=== PATIENT | male | born 1995 | race Caucasian/White ===

== ENCOUNTER 2016-07-30 01:00 | Emergency (ER) | payer BC, MEDICAID, OTHER ==
[~2016-07-30] VITALS: Ht 175.3 cm; Wt 62.0 kg
[~2016-07-30 01:00] MED LIST: VIST50CA PO; Z.0.NO CURRENT MEDS
[2016-07-30 01:27] VITALS: BP 136/90; PULSE 77; RESP 20; TEMP 98
[2016-07-30 01:34] LABS: AUTOMATED NEUTROPHIL # 5.2 TH/MM3 (1.8-7.7); BASOPHIL % 0.4 % (0.0-2.0); EOSINOPHIL # 0.1 TH/MM3 (0-0.4); EOSINOPHIL % 1.1 % (0.0-4.0); HEMATOCRIT 42.2 % (39.0-51.0); HEMO FLAGS DIFF FINAL; LYMPH % 34.3 % (9.0-44.0); LYMPHOCYTE # 3.1 TH/MM3 (1.0-4.8); MEAN CELL VOLUME 84.8 FL (80.0-100.0); MEAN CORPUSCULAR HEMOGLOBIN 29.1 PG (27.0-34.0); MEAN CORPUSCULAR HGB CONC 34.3 % (32.0-36.0); MONO % 6.9 % (0.0-8.0); NEUT % 57.3 % (16.0-70.0); PLATELET COUNT 259 TH/MM3 (150-450); RED BLOOD COUNT 4.97 MIL/MM3 (4.50-5.90); RED CELL DISTRIBUTION WIDTH 13.4 % (11.6-17.2); WHITE BLOOD COUNT 9.1 TH/MM3 (4.0-11.0)
[2016-07-30 01:36] VITALS: BP 136/90; PULSE 77; RESP 20; TEMP 98
[2016-07-30 02:02] LABS: ALT (GPT) 16 U/L (9-52); ANION GAP 7 MEQ/L (5-15); AST (GOT) 11 U/L (15-39); BICARBONATE 29.6 MEQ/L (21.0-32.0); BLOOD UREA NITROGEN 12 MG/DL (7-18); CHLORIDE 104 MEQ/L (98-107); GLOMERULAR FILTRATION RATE 96 ML/MIN (>89); POTASSIUM 3.6 MEQ/L (3.5-5.1); SODIUM (NA) 141 MEQ/L (136-145)
[2016-07-30 02:04] LABS: ALKALINE PHOSPHATASE 71 U/L (45-117); TOTAL BILIRUBIN ADULT 0.9 MG/DL (0.2-1.0)
[2016-07-30 02:07] LABS: ACETAMINOPHEN LESS THAN 2.0 MCG/ML (10.0-30.0)
[2016-07-30 02:14] LABS: AMPHETAMINE, URINE NEG (NEG); BARBITURATES, URINE NEG (NEG); COCAINE, URINE NEG (NEG)
--- NOTE | 2016-07-30 03:45 | PD ---
HPI Chief Complaint: Psychiatric Symptoms Time Seen by Provider: 03:41 Travel History International Travel<30 days: No Contact w/Intl Traveler<30days: No Traveled to known affect area: No History of Present Illness HPI 21-year-old white male presents to emergency department under Dc act by PD. The patient states that he had made suicide suggestive statements to his girlfriend in [place]. He states that she lives in [place] and goes to school at [employer]. He is currently enrolled at [employer] and is in a process of finishing up the semester and transferring to [employer] next semester. He states that his girlfriend and he are not getting along as well as he had hoped. He had hoped to upset her the way she upsets him by making these statements. He states that he truly has no intention of hurting himself or hurting anyone. He denies any toxic ingestions. He denies any drugs. He denies any back. He drinks occasionally. PFSH Past Medical History Medical History: Denies Significant Hx Diminished Hearing: No Immunizations Current: Yes Tetanus Vaccination: < 5 Years Influenza Vaccination: No Past Surgical History Surgical History: No Previous Surgery Social History Alcohol Use: Yes Tobacco Use: No Substance Use: No Allergies-Medications (Allergen,Severity, Reaction): Coded Allergies: No Known Allergies (Unverified , 07/30/16) Reported Meds & Prescriptions Reported Meds & Active Scripts Active No Active Prescriptions or Reported Medications Review of Systems Except as stated in HPI: all other systems reviewed are Neg Psychiatric: Positive: Mood Disorder, No: Anxiety, Depression, Suicidal Ideations, Disorder of Thought, Substance Abuse, Homicidal Ideation Physical Exam Narrative GENERAL: Well-nourished, well-developed patient. SKIN: Warm and dry. HEAD: Normocephalic and atraumatic. EYES: No scleral icterus. No injection or drainage. ENT: No nasal drainage noted. Mucous membranes pink. Airway patent. NECK: Supple, trachea midline. Moves head freely without obvious discomfort. CARDIOVASCULAR: Regular rate and rhythm without murmurs, gallops, or rubs. RESPIRATORY: Breath sounds equal bilaterally. No accessory muscle use. GASTROINTESTINAL: Abdomen soft, non-tender, nondistended. EXTREMITIES: No cyanosis or edema. BACK: Nontender without obvious deformity. No CVA tenderness. NEURO: Patient is alert and oriented. no sensorimotor deficits. Nonfocal. Normal speech. PSYCH: No delusions. No auditory or visual hallucinations. Data Data Last Documented VS Vital Signs Date Time Temp Pulse Resp B/P Pulse Ox O2 Delivery O2 Flow Rate FiO2 07/30/16 01:36 98.0 77 20 136/90 Orders Complete Blood Count With Diff (07/30/16 01:11) Comprehensive Metabolic Panel (07/30/16 01:11) Psych Screen (07/30/16 01:11) Drug Screen, Random Urine (07/30/16 01:11) Alcohol (Ethanol) (07/30/16 01:11) Salicylates (Aspirin) (07/30/16 01:11) Tylenol (Acetaminophen) (07/30/16 01:11) Labs Laboratory Tests Test 07/30/16 01:00 White Blood Count 9.1 TH/MM3 Red Blood Count 4.97 MIL/MM3 Hemoglobin 14.5 GM/DL Hematocrit 42.2 % Mean Corpuscular Volume 84.8 FL Mean Corpuscular Hemoglobin 29.1 PG Mean Corpuscular Hemoglobin 34.3 % Concent Red Cell Distribution Width 13.4 % Platelet Count 259 TH/MM3 Mean Platelet Volume 8.2 FL Neutrophils (%) (Auto) 57.3 % Lymphocytes (%) (Auto) 34.3 % Monocytes (%) (Auto) 6.9 % Eosinophils (%) (Auto) 1.1 % Basophils (%) (Auto) 0.4 % Neutrophils # (Auto) 5.2 TH/MM3 Lymphocytes # (Auto) 3.1 TH/MM3 Monocytes # (Auto) 0.6 TH/MM3 Eosinophils # (Auto) 0.1 TH/MM3 Basophils # (Auto) 0.0 TH/MM3 CBC Comment DIFF FINAL Differential Comment Sodium Level 141 MEQ/L Potassium Level 3.6 MEQ/L Chloride Level 104 MEQ/L Carbon Dioxide Level 29.6 MEQ/L Anion Gap 7 MEQ/L Blood Urea Nitrogen 12 MG/DL Creatinine 0.99 MG/DL Estimat Glomerular Filtration 96 ML/MIN Rate Random Glucose 98 MG/DL Calcium Level 9.4 MG/DL Total Bilirubin 0.9 MG/DL Aspartate Amino Transf 11 U/L (AST/SGOT) Alanine Aminotransferase 16 U/L (ALT/SGPT) Alkaline Phosphatase 71 U/L Total Protein 8.2 GM/DL Albumin 4.5 GM/DL Salicylates Level LESS THAN 1.7 MG/DL Urine Opiates Screen NEG Acetaminophen Level LESS THAN 2.0 MCG/ML Urine Barbiturates Screen NEG Urine Amphetamines Screen NEG Urine Benzodiazepines Screen NEG Urine Cocaine Screen NEG Urine Cannabinoids Screen NEG Ethyl Alcohol Level LESS THAN 3 MG/DL MDM Medical Decision Making Medical Screen Exam Complete: Yes Emergency Medical Condition: Yes Medical Record Reviewed: Yes Interpretation(s) Laboratory Tests Test 07/30/16 01:00 White Blood Count 9.1 TH/MM3 Red Blood Count 4.97 MIL/MM3 Hemoglobin 14.5 GM/DL Hematocrit 42.2 % Mean Corpuscular Volume 84.8 FL Mean Corpuscular Hemoglobin 29.1 PG Mean Corpuscular Hemoglobin 34.3 % Concent Red Cell Distribution Width 13.4 % Platelet Count 259 TH/MM3 Mean Platelet Volume 8.2 FL Neutrophils (%) (Auto) 57.3 % Lymphocytes (%) (Auto) 34.3 % Monocytes (%) (Auto) 6.9 % Eosinophils (%) (Auto) 1.1 % Basophils (%) (Auto) 0.4 % Neutrophils # (Auto) 5.2 TH/MM3 Lymphocytes # (Auto) 3.1 TH/MM3 Monocytes # (Auto) 0.6 TH/MM3 Eosinophils # (Auto) 0.1 TH/MM3 Basophils # (Auto) 0.0 TH/MM3 CBC Comment DIFF FINAL Differential Comment Sodium Level 141 MEQ/L Potassium Level 3.6 MEQ/L Chloride Level 104 MEQ/L Carbon Dioxide Level 29.6 MEQ/L Anion Gap 7 MEQ/L Blood Urea Nitrogen 12 MG/DL Creatinine 0.99 MG/DL Estimat Glomerular Filtration 96 ML/MIN Rate Random Glucose 98 MG/DL Calcium Level 9.4 MG/DL Total Bilirubin 0.9 MG/DL Aspartate Amino Transf 11 U/L (AST/SGOT) Alanine Aminotransferase 16 U/L (ALT/SGPT) Alkaline Phosphatase 71 U/L Total Protein 8.2 GM/DL Albumin 4.5 GM/DL Salicylates Level LESS THAN 1.7 MG/DL Urine Opiates Screen NEG Acetaminophen Level LESS THAN 2.0 MCG/ML Urine Barbiturates Screen NEG Urine Amphetamines Screen NEG Urine Benzodiazepines Screen NEG Urine Cocaine Screen NEG Urine Cannabinoids Screen NEG Ethyl Alcohol Level LESS THAN 3 MG/DL Differential Diagnosis MDM: High Differential diagnoses: Schizophrenia, schizoaffective disorder, bipolar, anxiety, depression, adjustment reaction, mood disorder NOS, ODD, depressive disorder NOS, dementia, dementia with agitation, psychosis NOS, substance induced mood disorder, intermittent explosive disorder, Asperger syndrome, infection,electrolyte abnormality, malingering. Narrative Course Mental health screening discussed with the patient. Psychiatric screen ordered. The patient is been medically cleared. This is adjustment reaction with depressed mood Diagnosis Primary Impression: Reaction, adjustment, with depressed mood, brief Scripts No Active Prescriptions or Reported Meds Condition: Stable Zay Magana Jul 30, 2016 03:44
[2016-07-30 05:53] VITALS: BP 92/55; PULSE 71; RESP 20; O2SAT 100
[2016-07-30 06:12] VITALS: BP 107/57; PULSE 82; RESP 19; O2SAT 99
--- NOTE | 2016-07-30 10:30 | PD.CONS ---
Provisional Diagnosis Admission Date [place] I. Adjustment disorder with depressed mood, history of cannabis induced anxiety [place] II. Deferred [place] III. Denies [place] IV. Conflicts with girlfriend [place] V. 56 History of Present Illness Service Psychiatry Consult Requested By Primary Care Physician No Primary Care Physician HPI The patient is a 21-year-old white single man, unemployed, domicile with his father, psychiatric history of anxiety, one ER visit 5 years ago to [place] due to cannabis induced anxiety, no psychotic hospitalizations, no previous suicidal attempts, no significant medical history, who presents to emergency department under Dc act by PD. The patient states that he had made suicide suggestive statements to his girlfriend in [place]. He states that she lives in [place] and goes to school at [employer]. He is currently enrolled at [employer] and is in a process of finishing up the semester and transferring to [employer] next semester. Patient states that he did make a suggestion of a suicidal statement with only intention to make his girlfriend to feel guilty. He explains that his girlfriend was unfaithful with him and he has been unable to get through that and he feels periodically the impulse of make her feel guilty and upset her "and I think that the best way to do it is suggesting the and was going to for her, but I don't really want to , I just want her to be upset and feel guilty". Patient denies depressive symptoms, he does report occasional sadness due to this situation, but he says that most of the time in his life is a happy person. He denies anhedonia, he denies hopelessness, he denies anxiety, he denies worthlessness, he denies suicidal or homicidal ideation, he denies visual and auditory hallucinations. He denies paranoia, delusions, ideas of reference. Patient is oriented 3, no gross cognitive impairment observed. Patient denies the use of illicit drugs, such as marijuana, cocaine, K2, heroine, also denies alcohol. Collateral information from his mother, Karolyn, telephone number [phone] , who stated that her son doesn't have any previous psychiatric history other than anxiety induced by cannabis in the past and he has a tendency to struggle when he has problems with girlfriend. 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 Review of Systems Endocrine: DENIES: Heat/cold intolerance, Polydipsia, Polyuria, Polyphagia Eyes: DENIES: Blurred vision, Diplopia, Eye inflammation, Eye pain, Vision loss , Photosensitivity, Double Vision Ears, nose, mouth, throat: DENIES: Tinnitus, Hearing loss, Vertigo, Nasal discharge, Oral lesions, Throat pain, Hoarseness, Ear Pain, Running Nose, Epistaxis, Sinus Pain, Toothache, Odynophagia Respiratory: DENIES: Apneas, Cough, Snoring, Wheezing, Hemoptysis, Sputum production, Shortness of breath Cardiovascular: DENIES: Chest pain, Palpitations, Syncope, Dyspnea on Exertion , PND, Lower Extremity Edema, Orthopnea, Claudication Gastrointestinal: DENIES: Abdominal pain, Black stools, Bloody stools, Constipation, Diarrhea, Nausea, Vomiting, Difficulty Swallowing, Anorexia Musculoskeletal: DENIES: Joint pain, Muscle aches, Stiffness, Joint Swelling, Back pain, Neck pain Integumentary: DENIES: Abnormal pigmentation, Nail changes, Pruritus, Rash Hematologic/lymphatic: DENIES: Bruising, Lymphadenopathy Immunologic/allergic: DENIES: Eczema, Urticaria Neurologic: DENIES: Abnormal gait, Headache, Localized weakness, Paresthesias, Seizures, Speech Problems, Tremor, Poor Balance Past Family Social History Coded Allergies: No Known Allergies (Unverified , 07/30/16) Discontinued Reported Medications Miscellaneous (No Current Meds) [facility] [place] Dis[place] Scripts Hydroxyzine Pamoate (Vistaril 50 MG CAP)50 Mg Cap50 Mg PO [id number] #[id number] Prov:Franki Zamudio MD 09/20/11 Family History He denies Social History Patient was born in [place], he was raised here in [place], he lives with his father in [place], he has a girlfriend, he is a college student, unemployed. Physical Exam Vital Signs Vital Signs Date Time Temp Pulse Resp B/P Pulse Ox O2 Delivery O2 Flow Rate FiO2 07/30/16 06:12 82 19 107/57 99 Room Air 07/30/16 01:36 98.0 Mental Status Examination Appearance Skinny man, long hair, age appearing, [facility], good hygiene, calm and cooperative and pleasant Speech: Unremarkable Orientation: x3 Memory: Unremarkable Thought Process: Logical Thought Content: Unremarkable Hallucination Type: None Suicidal Ideation: No Homicidal Ideation: No Previous Homicide Attempts: No Judgement: WNL Affect: Good Mood: Appropriate Motor Activity: Normal gait Assessment & Plan Problem List: (1) Adjustment disorder with depressed mood Assessment & Plan: On psychiatric evaluation today patient does not show any evidence or report symptomatology of depression, anxiety, shavon, perceptual disturbances. He denies suicidal or homicidal ideation. He denies visual and auditory hallucinations. Recent suicidal statement made to her girlfriend seems to be more manipulative and attention seeking than secondary to a primary psychiatric condition. His mother contacted for collateral information is in a complete agreement with this idea. He does not meet criteria for psychiatric admission at this moment. Extensive psychoeducation, support, motivation provided. Dc act will be lifted and the patient will be discharged back home with his mother. ICD Code: F43.21 Assessment & Plan Estimated LOS: Aristeo Saez MD Jul 30, 2016 10:30
== END 2016-07-30 09:34 | disposition home or self-care (01) ==
LOC: NEPA 01:00 → NEPJ 09:34
DX: F43.21 Adjustment disorder with depressed mood (principal)
CPT/HCPCS: 80053; 80307; 85025; 99284